=== PATIENT | female | born 1960 | race Caucasian/White ===

== ENCOUNTER 2017-09-25 15:05 | Emergency (ER) | payer OTHER ==
[2017-09-25] MEDS: ONDANSETRON (ODT) 4 MG TAB ODT (21:49)
[2017-09-25] MEDS: HYDROCODONE/APAP (5/325) TAB PO (21:49)
[2017-09-25] MEDS: LIDOCAINE/MYLANTA 4 ML (PO SYG) PO (21:52)
== END 2017-09-26 00:07 | disposition home or self-care (01) ==
LOC: FTE 09-26 00:07
DX: A49.9 Bacterial infection, unspecified (principal); I10 Essential (primary) hypertension; Z79.82 Long term (current) use of aspirin
CPT/HCPCS: 76536; 99284-25